=== PATIENT | female | born 1960 | race Caucasian/White ===

== ENCOUNTER 2016-12-20 15:45 | Emergency (ER) | payer OTHER ==
[2016-12-20] MEDS ORDERED: OXYCODONE HCL 5 MG TABLET ONE (16:28)
--- NOTE | 2016-12-20 16:35 | RAD ---
FOOT RIGHT 3 VIEWS HISTORY: Right foot pain from kicking something. COMPARISONS: None. FINDINGS: 3 views of the right foot were performed demonstrating normal bony mineralization. The osseous structures remain intact with no definitive fracture visualized. There is a well-corticated ossific density evident along the dorsal aspect of the midfoot situated between the first and second proximal metatarsals, possibly residua of chronic trauma. A small anterior calcaneal enthesophyte is present. The joint spaces are well-maintained. No other discrete soft tissue abnormalities are visualized. IMPRESSION: 1. No definite acute fracture visualized. 2. A well-corticated ossific density dorsal to the base of the first and second metatarsals, possibly residua of a chronic injury. 3. A small anterior calcaneal enthesophyte.
== END 2016-12-20 17:21 | disposition home or self-care (01) ==
LOC: ED 15:45
DX: S90.31XA Contusion of right foot, initial encounter (principal); F17.210 Nicotine dependence, cigarettes, uncomplicated; E11.9 Type 2 diabetes mellitus without complications; Z79.84 Long term (current) use of oral hypoglycemic drugs; W22.09XA Striking against other stationary object, initial encounter; Y92.9 Unspecified place or not applicable
CPT/HCPCS: 73630; 99283 ×2; A9270

== ENCOUNTER 2016-12-29 10:50 | Emergency (ER) | payer OTHER ==
--- NOTE | 2016-12-29 12:03 | RAD ---
EXAMINATION:FOOT RIGHT 3 VIEWS CLINICAL INDICATION: Right foot injury one week ago. Subsequent encounter. COMPARISONS: 12/20/2016. FINDINGS: No fracture or focal destruction is identified. Joint space relationships of the foot are maintained. There is increased soft tissue swelling involving the dorsum of the foot at the level of the distal metatarsals. No radiopaque foreign body is identified. Dorsal calcification of the base of the first and second metatarsal is unchanged from the prior study. This may reflect a posttraumatic deformity. No acute fracture or periosteal response is identified. IMPRESSION: 1. Increased soft tissue swelling involving the dorsal aspect of the metatarsals. No radiopaque foreign bodies identified. I may reflect posttraumatic or infectious etiology. No osteolytic or blastic changes are identified. 2. Stable calcification dorsal base of the first and second metatarsals. This may be posttraumatic in origin. This is similar to the prior exam. No acute fracture or focal destruction is identified.
[2016-12-29] MEDS ORDERED: CLINDAMYCIN HCL 150 MG CAPSULE ONE (12:15)
== END 2016-12-29 12:20 | disposition home or self-care (01) ==
LOC: ED 10:50
DX: S93.601A Unspecified sprain of right foot, initial encounter (principal); L03.115 Cellulitis of right lower limb; F17.210 Nicotine dependence, cigarettes, uncomplicated; E11.9 Type 2 diabetes mellitus without complications; Z79.84 Long term (current) use of oral hypoglycemic drugs; W22.09XA Striking against other stationary object, initial encounter; Y92.007 Garden or yard of unspecified non-institutional (private) residence as the place of occurrence of the external cause